=== PATIENT | female | born 1985 | race Caucasian/White ===

== ENCOUNTER 2018-10-03 14:19 | Outpatient (RCR) | payer MEDICAID, OTHER, SELFPAY ==
--- NOTE | 2018-10-03 15:15 | PT.OPPOC ---
Current Diagnoses Cervicalgia (10/03/18) Provider Visit Care Team Role Provider Type Natalia Lerner PA-C Attending Provider Non-Staff Primary Care Provider Specialty: Medical Address: [address] [place] [address] [place], [place], [address] Email: Plan Of Care PT-OP-T Assessment and Plan Start: 10/05/18 16:35 Freq: Status: Active Protocol: Document 10/03/18 15:15 RCC (Rec: 10/05/18 16:59 RCC [email or web address]) Physical Therapy Assessment Rehab Potential Rehabilitation Potential Good Evaluation Complexity Number of Personal Factors/Comorbidities 0 Number of Body Systems Impaired 1-2 Clinical Presentation at Evaluation Stable Impairments Impairments Activity Tolerance Pain Soft Tissue Mobility Other Impairments work tasks- shoveling, lifting Goals cerival ROM Impairment head on neck ROM Residential Goal (LTG) AROM cervical rotation to at least 80 deg. and side-bending to at least 45 deg. without c /o pain prior to d/c to normalize cervical spine ROM. LTG Duration 8 weeks home exercie program Impairment lacks appropriate HEP Residential Goal (LTG) pt will be indep. with her home exercise program to assist with pain management and normalization of soft tissue restrictions prior to d /c. LTG Duration 8 weeks pain rated 7/10 Impairment 7/10 pain B neck Short Term Goal (STG) 5/10 or less at worst after sleep and work related tasks. STG Duration 4 weeks Residential Goal (LTG) 2/10 pain or less at worst after sleep and work related tasks. LTG Duration 8 weeks QuickDASH Impairment 21-> 42% Short Term Goal (STG) QuickDASH score of 15 or less to demonstrate improvements with functional daily tasks. 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 LTG Duration 8 weeks Assessment Summary Assessment Pt presents with negative testing for foraminal compression of the cervical spine, neural tension, or thoracic outlet syndrome. Pt with hypermobility noted at C3 -4 bilaterally, no pain when tested PA force with muscular contraction. Pt's limitations in ROM appear to be related to soft tissue tension in the cervical spine bilaterally. Pt would benefit from skilled outpatient physical therapy to progress her ROM, improved postural and neck stability to decrease hypermobility at the level of C3-4, and to return to sleep and work with minimal to no pain prior to d/c. Physical Therapy Plan Frequency and Duration Frequency of Treatment 2x/Week Duration of Treatment 8 weeks Plan of Care Start Date 10/03/18 Plan of Care End Date 11/28/18 Therapeutic Interventions Therapeutic Interventions Home Exercise Program Joint Mobilizations Manual Therapy Neuromuscular Re-education Patient/Caregiver Education Self-Care/Home Management Soft Tissue Mobilization Taping Therapeutic Activities Therapeutic Exercises Modalities Cold Pack/Ice Massage Electric Stimulation Hot Packs Traction- Mechanical Ultrasound Next Visit Focus/Plan Next Note Type Treatment Note Next Visit Plan manual traction trial, STR cervical mm, review stretches, add 1/2 rib self-mobilization if able. Lanre love, isometrics for c/s. Plan of Care Dates Plan of Care Start Date 10/03/18 Plan of Care End Date 11/28/18 Please Sign and Return: I have reviewed this Plan of Care and certify that the skilled therapy services above are required to meet the patient?s needs. Physician Signature Date Printed Name and Credentials Clinical Instructor Signature Printed Name and Credentials
--- NOTE | 2018-10-03 15:15 | PT.OIE ---
Current Diagnoses Cervicalgia (10/03/18) Past Surgical History Status post colposcopy Provider Visit Care Team Role Provider Type Natalia Lerner PA-C Attending Provider Non-Staff Primary Care Provider Specialty: Medical Address: [address] [place] [address] [place], [address] Email: Physical Therapy Initial Evaluation PT-OP-A Visit Information Start: 10/05/18 16:35 Freq: Status: Active Protocol: Document 10/03/18 15:15 RCC (Rec: 10/05/18 16:59 RCC [email or web address]) Out-Patient Physical Therapy Visit Information Visit Information Visit Type Initial Evaluation Visit Start Time 14:30 Visit Stop Time 15:15 Total Visit Minutes 45 Visit Number 1 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 She tends to sleep on her side, with the bottom UE underneath her head and pillow. She has attempted to change this, has moved her bed and tried different positions, but still tends to get into that position some time during the night. Pain extends from under base of skull into the shoulders. She has tried massage and accupuncture, with some improvement but short-lived. No radiographs done. Denies numbness/tingling. Treatment Goals Patient/Caregiver Goals decrease pain, establish HEP to manage pain Personal Factors Other Personal Factors That May Effect none Therapy/Recovery PT-OP-C Subjective Start: 10/05/18 16:35 Freq: Status: Active Protocol: Document 10/03/18 15:15 RCC (Rec: 10/05/18 16:59 RCC [email or web address]) Patient Questionnaires Quick Dash- Upper Extremity Quick Dash UE Score 21 OP-PT Pain Assessment Location bilateral neck Intensity 7 Scale Used Numeric (1 - 10) Description Aching Spasm Tightness Pain Aggravating Factors Position Home Pain Medication Use Pain Medications Used No PT-OP-F Manual Assessment Start: 10/05/18 16:35 Freq: Status: Active Protocol: Document 10/03/18 15:15 RCC (Rec: 10/05/18 16:59 RCC [email or web address]) Manual Assessments Soft Tissue Assessment Soft Tissue Mobility Assessment Tenderness to palpation: bilateral levator scapulae, upper trapezius, rhomboids, upper trapezius, suboccipitals , scalenes Joint Mobility Assessment Joint Mobility Assessment hypermobility: C3-4 PT-OP-H Neuro Start: 10/05/18 16:35 Freq: Status: Active Protocol: Document 10/03/18 15:15 RCC (Rec: 10/05/18 16:59 RCC [email or web address]) Sensation Evaluation Gross Sensation Gross Sensation WNL Deep Tendon Reflex & Clonus Assessment Deep Tendon Reflex Bilateral Bicep Deep Tendon Reflex 2+ Normal Bilateral Tricep Deep Tendon Reflex 2+ Normal Bilateral Brachioradialis Deep Tendon Reflex 2+ Normal PT-OP-K Range of Motion Start: 10/05/18 16:35 Freq: Status: Active Protocol: Document 10/03/18 15:15 RCC (Rec: 10/05/18 16:59 RCC [email or web address]) Cervical Spine Range of Motion Cervical Spine Active Degrees Testing Position Sitting Flexion 55 Extension 55 Rotation Left 74 Rotation Right 80 Lateral Flexion Left 44 Lateral Flexion Right 40 ROM Limitations Soft Tissue Tightness Comments pain ipisilateral to movement PT-OP-L Special Tests Start: 10/05/18 16:35 Freq: Status: Active Protocol: Document 10/03/18 15:15 RCC (Rec: 10/05/18 16:59 RCC [email or web address]) Special Tests Cervical Spine Special Tests Traction Test Results stretch feels good Spurling's Test Test Results negative bilaterally Foraminal Compression Test Results negative bilaterally C2 Side [place] Test Results negative C1 Side [place] Test Results negative Neural Special Tests- Upper Body Ulnar Nerve Tension Test Results negative bilaterally Radial Nerve Tension Test Results negative bilaterally Median Nerve Tension Test Results negative bilaterally Vascular Special Tests Adson Maneuver Test Results negative bilaterally PT-OP-M Strength Start: 10/05/18 16:35 Freq: Status: Active Protocol: Document 10/03/18 15:15 RCC (Rec: 10/05/18 16:59 RCC [email or web address]) Shoulder Strength Shoulder Manual Muscle Testing Right Flexion 5 Normal Extension 5 Normal Abduction (C5) 5 Normal Adduction 5 Normal External Rotation 5 Normal Internal Rotation 5 Normal Horizontal Abduction 5 Normal Horizontal Adduction 5 Normal Left Flexion 5 Normal Extension 5 Normal Abduction (C5) 5 Normal Adduction 5 Normal External Rotation 5 Normal Internal Rotation 5 Normal Horizontal Abduction 5 Normal Horizontal Adduction 5 Normal Elbow/Forearm Strength Elbow and Forearm Manual Muscle Testing Right Flexion (C6) 5 Normal Extension (C7) 5 Normal Left Flexion (C6) 5 Normal Extension (C7) 5 Normal PT-OP-Q Treatments Start: 10/05/18 16:35 Freq: Status: Active Protocol: Document 10/03/18 15:15 RCC (Rec: 10/05/18 16:59 RCC [email or web address]) Therapeutic Exercises Sitting Exercises levator, upper trap, scalene stretch Side bilateral Reps/Minutes 2 each Comments sitting on hand PT-OP-T Assessment and Plan Start: 10/05/18 16:35 Freq: Status: Active Protocol: Document 10/03/18 15:15 RCC (Rec: 10/05/18 16:59 [facility] [email or web address]) Physical Therapy Assessment Rehab Potential Rehabilitation Potential Good Evaluation Complexity Number of Personal Factors/Comorbidities 0 Number of Body Systems Impaired 1-2 Clinical Presentation at Evaluation Stable Impairments Impairments Activity Tolerance Pain Soft Tissue Mobility Other Impairments work tasks- shoveling, lifting Goals cerival ROM Impairment head on neck ROM Stumper Feller Goal (LTG) AROM cervical rotation to at least 80 deg. and side-bending to at least 45 deg. without c /o pain prior to d/c to normalize cervical spine ROM. LTG Duration 8 weeks home exercie program Impairment lacks appropriate HEP Usp Goal (LTG) pt will be indep. with her home exercise program to assist with pain management and normalization of soft tissue restrictions prior to d /c. LTG Duration 8 weeks pain rated 7/10 Impairment 7/10 pain B neck Short Term Goal (STG) 5/10 or less at worst after sleep and work related tasks. STG Duration 4 weeks Stumper Feller Goal (LTG) 2/10 pain or less at worst after sleep and work related tasks. LTG Duration 8 weeks QuickDASH Impairment 21-> 42% Short Term Goal (STG) QuickDASH score of 15 or less to demonstrate improvements with functional daily tasks. STG Duration 4 weeks Stumper Feller Goal (LTG) QuickDASH score of 12 or less to demonstrate improvements with functional daily tasks. LTG Duration 8 weeks Assessment Summary Assessment Pt presents with negative testing for foraminal compression of the cervical spine, neural tension, or thoracic outlet syndrome. Pt with hypermobility noted at C3 -4 bilaterally, no pain when tested PA force with muscular contraction. Pt's limitations in ROM appear to be related to soft tissue tension in the cervical spine bilaterally. Pt would benefit from skilled outpatient physical therapy to progress her ROM, improved postural and neck stability to decrease hypermobility at the level of C3-4, and to return to sleep and work with minimal to no pain prior to d/c. Physical Therapy Plan Frequency and Duration Frequency of Treatment 2x/Week Duration of Treatment 8 weeks Plan of Care Start Date 10/03/18 Plan of Care End Date 11/28/18 Therapeutic Interventions Therapeutic Interventions Home Exercise Program Joint Mobilizations Manual Therapy Neuromuscular Re-education Patient/Caregiver Education Self-Care/Home Management Soft Tissue Mobilization Taping Therapeutic Activities Therapeutic Exercises Modalities Cold Pack/Ice Massage Electric Stimulation Hot Packs Traction- Mechanical Ultrasound Next Visit Focus/Plan Next Note Type Treatment Note Next Visit Plan manual traction trial, STR cervical mm, review stretches, add 1/2 rib self-mobilization if able. Chin tuck, isometrics for c/s.
--- NOTE | 2018-12-17 09:52 | PT.OPDS ---
Current Diagnoses Cervicalgia (10/03/18) Provider Visit Care Team Role Provider Type Natalia Lerner PA-C Attending Provider Non-Staff Primary Care Provider Specialty: Medical Address: [address] [place] [address], [place], [address] Email: Visit Number Visit Number 1 Discharge Summary PT-OP-B Current Condition Start: 10/05/18 16:35 Freq: Status: Active Protocol: Document 10/03/18 15:15 RCC (Rec: 10/05/18 16:59 RCC [email or web address]) Current Condition History of Current Condition Onset Date years ago Current Complaints B neck pain into shoulders History of Current Condition Pt is a 33 y/o female presenting to physical therapy with a c/o bilateral neck pain. 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 She tends to sleep on her side, with the bottom UE underneath her head and pillow. She has attempted to change this, has moved her bed and tried different positions, but still tends to get into that position some time during the night. Pain extends from under base of skull into the shoulders. She has tried massage and accupuncture, with some improvement but short-lived. No radiographs done. Denies numbness/tingling. Treatment Goals Patient/Caregiver Goals decrease pain, establish HEP to manage pain Personal Factors Other Personal Factors That May Effect none Therapy/Recovery PT-OP-C Subjective Start: 10/05/18 16:35 Freq: Status: Active Protocol: Document 12/17/18 09:49 RCC (Rec: 12/17/18 09:52 RCC [email or web address]) OP-PT Subjective Patient Comments Patient Comments Pt verbalized that she was doing better, performing her stretching. Patient Reported Progress Improving PT-OP-F Manual Assessment Start: 10/05/18 16:35 Freq: Status: Active Protocol: Document 10/03/18 15:15 RCC (Rec: 10/05/18 16:59 RCC [email or web address]) Manual Assessments Soft Tissue Assessment Soft Tissue Mobility Assessment Tenderness to palpation: bilateral levator scapulae, upper trapezius, rhomboids, upper trapezius, suboccipitals , scalenes Joint Mobility Assessment Joint Mobility Assessment hypermobility: C3-4 PT-OP-H Neuro Start: 10/05/18 16:35 Freq: Status: Active Protocol: Document 10/03/18 15:15 RCC (Rec: 10/05/18 16:59 RCC [email or web address]) Sensation Evaluation Gross Sensation Gross Sensation WNL Deep Tendon Reflex & Clonus Assessment Deep Tendon Reflex Bilateral Bicep Deep Tendon Reflex 2+ Normal Bilateral Tricep Deep Tendon Reflex 2+ Normal Bilateral Brachioradialis Deep Tendon Reflex 2+ Normal PT-OP-K Range of Motion Start: 10/05/18 16:35 Freq: Status: Active Protocol: Document 10/03/18 15:15 RCC (Rec: 10/05/18 16:59 RCC [email or web address]) Cervical Spine Range of Motion Cervical Spine Active Degrees Testing Position Sitting Flexion 55 Extension 55 Rotation Left 74 Rotation Right 80 Lateral Flexion Left 44 Lateral Flexion Right 40 ROM Limitations Soft Tissue Tightness Comments pain ipisilateral to movement PT-OP-L Special Tests Start: 10/05/18 16:35 Freq: Status: Active Protocol: Document 10/03/18 15:15 RCC (Rec: 10/05/18 16:59 RCC [email or web address]) Special Tests Cervical Spine Special Tests Traction Test Results stretch feels good Spurling's Test Test Results negative bilaterally Foraminal Compression Test Results negative bilaterally C2 Side [place] Test Results negative C1 Side [place] Test Results negative Neural Special Tests- Upper Body Ulnar Nerve Tension Test Results negative bilaterally Radial Nerve Tension Test Results negative bilaterally Median Nerve Tension Test Results negative bilaterally Vascular Special Tests Adson Maneuver Test Results negative bilaterally PT-OP-M Strength Start: 10/05/18 16:35 Freq: Status: Active Protocol: Document 10/03/18 15:15 RCC (Rec: 10/05/18 16:59 RCC [email or web address]) Shoulder Strength Shoulder Manual Muscle Testing Right Flexion 5 Normal Extension 5 Normal Abduction (C5) 5 Normal Adduction 5 Normal External Rotation 5 Normal Internal Rotation 5 Normal Horizontal Abduction 5 Normal Horizontal Adduction 5 Normal Left Flexion 5 Normal Extension 5 Normal Abduction (C5) 5 Normal Adduction 5 Normal External Rotation 5 Normal Internal Rotation 5 Normal Horizontal Abduction 5 Normal Horizontal Adduction 5 Normal Elbow/Forearm Strength Elbow and Forearm Manual Muscle Testing Right Flexion (C6) 5 Normal Extension (C7) 5 Normal Left Flexion (C6) 5 Normal Extension (C7) 5 Normal PT-OP-T Assessment and Plan Start: 10/05/18 16:35 Freq: Status: Active Protocol: Document 12/17/18 09:49 [facility] (Rec: 12/17/18 09:52 [facility] [email or web address]) Physical Therapy Assessment Assessment Summary Assessment Pt attended one physical therapy session (initial evaluation) and did not show up for her follow up appointment. She did verbalize improvements with pain in October of 2018, but did not schedule further PT appointments at that time. Due to not completing the most recent plan of care, the pt will be d/c from PT at this time. Should issues continue, recommend pt follow up with her PCP. Physical Therapy Plan Discharge Physical Therapy Discharge Reasons No Longer Attending PT Discharge Comments did not complete the most recent plan of care.
== END 2018-12-24 12:45 ==
LOC: PHYS 14:19
PROVIDERS: PCP Physician Assistant; Visit Provider Physician Assistant
DX: M54.2 Cervicalgia (principal)
CPT/HCPCS: 97110; 97161

== ENCOUNTER 2023-08-04 13:03 | Emergency (ER) | payer OTHER, SELFPAY ==
[2023-08-04 13:35] VITALS: BP 140/80; PULSE 65; RESP 16; TEMP 36.8; O2SAT 100; BMI 22.3
[2023-08-04 14:06] LABS: Bacteria Urine Few (2-10); RBC Urine >100/HPF (0-5/HPF); Squamous Epithelial Cell Urine 1-5 /HPF (0-5/HPF); WBC Urine 5-10/HPF (0-5/HPF)
[2023-08-04 14:08] LABS: Amorphous Sediment Urine 1+; Pregnancy Test Urine Negative (Negative)
[2023-08-04 14:13] LABS: Appearance Urine UA TURBID; Bilirubin Urine UA 2+ (NEGATIVE); Color Urine UA RED; Glucose Urine UA NEGATIVE (Negative); Ketones Urine UA 2+ (NEGATIVE); Leukocyte Esterase Urine UA TRACE (NEGATIVE); Nitrite Urine UA POSITIVE (Negative); Occult Blood Urine UA 3+ (Negative); Protein Urine UA 3+ (Negative); Specific Gravity Urine UA >=1.030 (1.000-1.035)
[2023-08-04 14:14] LABS: Culture Indicated Urine Specimen Cultured; pH Urine UA 6.5 (4.5-8.0)
[2023-08-04 14:16] LABS: Ictotest Urine Negative (Negative)
--- NOTE | 2023-08-04 15:18 | ED_ITS ---
HPI - Female Genitourinary General Chief complaint: OB/Uterine Contractions Stated complaint: positive test, spotting Time Seen by Provider: 08/04/23 13:09 Source: patient Mode of arrival: Ambulatory History of Present Illness HPI Narrative: Patient presents from home by private vehicle for spotting. Patient's last menstrual cycle was 06/29. She missed her period on 07/27, and on 07/29 she had a positive home test. Patient reports spotting off and on and cramping yesterday, none today. Related Data Allergies Allergy/AdvReac Type Severity Reaction Status Date / Time No Known Drug Allergies Allergy Verified 08/04/23 13:35 Review of Systems Review of Systems Narrative: CONSTITUTIONAL- Denies: fever, chills, fatigue - Reports: positive home test, spotting Denies: frequency, dysuria, hematuria, flank pain SKIN- Denies: rash, itching, burn, swelling NEUROLOGICAL- Denies: headache, numbness, weakness, dizziness PSYCHIATRIC- Denies: anxiety, depression, suicidal ideation, homicidal ideation Patient History Surgical History (Updated 03/04/18 @ 05:29 by Conversion Provider) Status post colposcopy Last Alcoholic Drink: does not use Substance Use Type: does not use Exam Initial Vital Signs Initial Vital Signs: Vital Signs Temperature 98.3 F 08/04/23 13:35 Pulse Rate 65 08/04/23 13:35 Respiratory Rate 16 08/04/23 13:35 Blood Pressure 140/80 08/04/23 13:35 Pulse Oximetry 100 08/04/23 13:35 Oxygen Delivery Method Room Air 08/04/23 13:35 Const: Awake, alert, no acute distress, nontoxic appearing RESP: unlabored, no wheezing GI: Atraumatic, soft, nontender, nondistended MSK: Atraumatic, full range of motion, pulses equal Skin: Warm, Dry, intact, no rashes Neuro: AO x3, CN II-XII grossly intact, moves all extremities Psych: Anxious affect, mood normal, not suicidal, not homicidal Course Course Course Narrative: Spotting after positive home test. test in emergency department is negative. Patient states that she already knows that she had a miscarriage she is here today for confirmation. She is very tearful stating ?I really wanted this one?. She will follow with OBGYN for fertility concerns. ED return precautions discussed at bedside. Patient expressed understanding of the plan and is in agreement at this time. All questions answered at the time of discharge. Orders Ordered: ED Orders 08/04/23 13:45 Ictotest Urine Stat Test Urine Stat Urinalysis and Microscopic Stat Urine Culture Stat Vital Signs Vital signs: Vital Signs - 8 hr 08/04/23 13:35 08/04/23 15:25 Temperature 98.3 F 98.3 F Pulse Rate 65 79 Respiratory Rate 16 15 Blood Pressure 140/80 132/76 Pulse Oximetry 100 98 Oxygen Delivery Method Room Air Room Air MDM - Female Genitourinary Lab Data Labs: Lab Results 08/04/23 08/04/23 Range/Units 13:45 13:45 Urine Color Red Urine Appearance Turbid Urine pH 6.5 (4.5-8.0) Ur Specific [place] >=1.030 H (1.000-1.035) Urine Protein 3+ H (Negative) Urine Glucose (UA) Negative (Negative) g/dL Urine Ketones 2+ H (NEGATIVE) Urine Occult Blood 3+ H (Negative) Urine Nitrate Positive H (Negative) Urine Bilirubin 2+ H (NEGATIVE) Ur Bilirubin Confirm Negative (Negative) Urine Urobilinogen 1.0 (0.2) E.U./dL Ur Leukocyte Esterase Trace H (NEGATIVE) Urine RBC >100/hpf H (0-5/HPF) Urine WBC 5-10/hpf H (0-5/HPF) Ur Squamous Epith Cells 1-5 /hpf (0-5/HPF) Amorphous Sediment 1+ Urine Bacteria Few (2-10) H (None) Ur Culture Indicated? Specimen cultured Urine Test Negative (Negative) Discharge Plan Departure Patient Disposition: Home Clinical Impression: Negative test Instructions: DI for Miscarriage Referrals: Miscellaneous,Doctor [Primary Care Provider] - Stand Alone Forms: Patient Portal/API
[2023-08-04 15:25] VITALS: BP 132/76; PULSE 79; RESP 15; TEMP 36.8; O2SAT 98
== END 2023-08-04 15:26 | disposition home or self-care (01) ==
PROVIDERS: Emergency Provider Emergency Medicine
DX: N93.9 Abnormal uterine and vaginal bleeding, unspecified (principal); Z32.02 Encounter for pregnancy test, result negative
CPT/HCPCS: 81001; 81025; 87086; 99281; 99282

== ENCOUNTER → 2024-07-20 11:47 | Outpatient (CLI) | payer OTHER, SELFPAY ==
--- NOTE | 2024-07-20 | DI.US.S_ITS ---
PROCEDURE: US OB >= 14 WEEKS FETUS INDICATIONS: ANATOMY SCAN OUTSIDE/PRIOR DATING DATA: Last menstrual period (LMP): 02/24/2024 LMP-based estimated date of delivery (JASON): 11/30/2024. First dating scan (date and location): 07/20/2024. Estimated date of delivery (JASON) from first dating scan: 11/27/2024. TECHNIQUE: Real-time scanning was performed of the fetus, with image documentation and biometric measurements. COMPARISON: None. FINDINGS: General: A single living intrauterine gestation is present. Presentation: Vertex. Placenta: Placental position is anterior , without previa. Amniotic fluid index: 13.2 cm cm, normal range is 5-24 cm. Single deepest vertical pocket is 5.4 cm cm. heart rate: 160 beats per minute. Maternal cervical canal: 3.9 cm cm long. Normal lower limit is 2.5 cm. biometrics: Biparietal diameter: 21 weeks 6 days Head circumference: 21 weeks 4 days Abdominal circumference: 21 weeks 4 days Femur length: 20 weeks 6 days Clinically estimated gestational age: 21 weeks Composite gestational age from present scan: 21 weeks 3 days Estimated weight and percentile: 415 g, 62nd percentile for clinical gestational age Anatomic survey: Neuro: Ventricles are non-dilated at less than 10 mm. Cisterna magna is normal at 3-11 mm. Cerebellum is normal in size and morphology. Nuchal skin fold: Normal at less than 6 mm between 14-21 weeks gestational age. Face: Nose and lips are normal. Facial profile not well seen.. Spine: No evidence for spina bifida. Heart: 4-chambered heart is present, with normal ventricular outflow tracts. Diaphragm: Diaphragm is intact. Stomach: Left-sided stomach is present. Kidneys: No hydronephrosis. Normal is less than 5 mm in 2nd trimester, less than 7 mm in 3rd trimester. Cord: 3-vessel cord has orthotopic insertion. Marginal placental cord insertion site 2.3 cm from the placental edge. Bladder: Normal in size. Extremities: All 4 extremities identified. IMPRESSION: 1. Single living IUP with composite gestational age of 21 weeks 3 days corresponding to ultrasound JASON of 11/27/2024, which is concordant with clinical dates. 2. Facial profile suboptimally visualized; otherwise normal anatomic survey. Short-term follow-up recommended. 3. Marginal placental cord insertion site which can be reassessed on follow-up exam. We strive to produce accurate, complete, and clear reports of imaging services. To assist us in improving patient care, this report was composed using standard report templates and voice recognition software. Therefore, it may contain abnormal punctuation, insertions and/or omissions. Occasional wrong-word or sound-alike substitutions may occur. Though we review the report and make efforts to correct it, we do recommend that the report be read carefully in proper context to recognize any text inaccuracies. Dictated by: Shaji GAY Interpreted: Ritesh Linton MD on 07/20/2024 at 15:58 Transcribed by: CORBIN on 07/20/2024 at 16:01 Approved by: Ritesh Linton M.D. on 07/21/2024 at 8:40
== END ==
PROVIDERS: Referring Provider Nurse Practitioner Obstetrics & Gynecology; Visit Provider Nurse Practitioner Obstetrics & Gynecology
DX: Z34.92 Encounter for supervision of normal pregnancy, unspecified, second trimester (principal); Z3A.21 21 weeks gestation of pregnancy
CPT/HCPCS: 76811

== ENCOUNTER → 2024-07-27 16:25 | Outpatient (CLI) | payer OTHER, SELFPAY ==
--- NOTE | 2024-07-27 16:26 | DI.US.S_ITS ---
PROCEDURE: US OB FOLLOW UP INDICATIONS: follow up to Anatomy Scan OUTSIDE/PRIOR DATING DATA: Last menstrual period (LMP): 11/25/2023. LMP-based estimated date of delivery (JASON): 11/30/2024. First dating scan (date and location): Not applicable. Estimated date of delivery (JASON) from first dating scan: Not applicable. The calculations are made using the working JASON of 11/30/2024. TECHNIQUE: Real-time scanning was performed of the fetus, with image documentation and biometric measurements. Endovaginal scanning: No COMPARISON: None. FINDINGS: General: A single living intrauterine gestation is present. Presentation: Vertex. Placenta: Placental position is anterior , without previa. Amniotic fluid index: 14 cm, normal range is 5-24 cm. Single deepest vertical pocket is 4.2 cm. heart rate: 147 beats per minute. Maternal cervical canal: Not well seen biometrics: Clinically estimated gestational age: 22 week 0 day Anatomic survey: Neuro: Ventricles are normal at less than 10 mm. Cisterna magna is normal at 3-11 mm. Cerebellum is normal in size and morphology. Nuchal skin fold: Normal at less than 6 mm between 14 and 21 weeks gestational age. Face: Nose and lips, facial profile are normal. Spine: No evidence for spina bifida. Heart: 4-chambered heart is present, with normal ventricular outflow tracts. Diaphragm: Diaphragm is intact. Stomach: Left-sided stomach is present. Kidneys: No hydronephrosis. Normal is less than 5 mm in 2nd trimester, less than 7 mm in 3rd trimester. Cord: 3 vessel cord has orthotopic insertion. Cord insertion is 3.4 cm from the placental edge Bladder: Normal in size. Extremities: All 4 extremities are visualized. IMPRESSION: Single live intrauterine consistent with 22 week 0 day gestation. Facial profile is normal. Normal anatomic survey. Approved by: Chino Sharma M.D. on 07/28/2024 at 14:47
== END ==
LOC: US 16:25
PROVIDERS: Referring Provider Nurse Practitioner Obstetrics & Gynecology; Visit Provider Nurse Practitioner Obstetrics & Gynecology
DX: Z34.92 Encounter for supervision of normal pregnancy, unspecified, second trimester (principal); Z3A.22 22 weeks gestation of pregnancy
CPT/HCPCS: 76816

== ENCOUNTER → 2024-11-11 13:44 | Outpatient (CLI) | payer MEDICAID, SELFPAY ==
--- NOTE | 2024-11-11 13:46 | DI.US.S_ITS ---
PROCEDURE: US OB LIMITED INDICATIONS: EFW; JERRY; CORD DOPPLERS OUTSIDE/PRIOR DATING DATA: Last menstrual period (LMP): 02/24/2024. LMP-based estimated date of delivery (JASON): 11/30/2024. First dating scan (date and location): Not applicable. Estimated date of delivery (JASON) from first dating scan: Not applicable. The calculations are made using the working JASON of 11/30/2024. TECHNIQUE: Real-time scanning was performed of the fetus, with image documentation and biometric measurements. Biophysical profile was also obtained. Endovaginal scanning: Not performed COMPARISON: None. FINDINGS: General: A single living intrauterine gestation is present. Presentation: Vertex. Placenta: Placental position is anterior and fundal , without previa. Amniotic fluid index: 6.4 cm, normal range is 5-24 cm. Single deepest vertical pocket is 4.9 cm. heart rate: 158 beats per minute. Maternal cervical canal: Not well seen at late stage of biometrics: Biparietal diameter: 9.1 cm, 36 weeks 5 days Head circumference: 32.8 cm, 37 weeks 2 days Abdominal circumference: 33.0 cm, 36 weeks 6 days Femur length: 7.0 cm, 36 weeks 0 days Clinically estimated gestational age: 37 weeks 2 days Composite gestational age from present scan: 36 weeks 5 days Estimated weight and percentile: 3006 g, 42 percentile Biophysical profile: Umbilical artery Doppler: 1.9, 1.2, 2.0 IMPRESSION: 1. Living late 3rd trimester intrauterine with no sonographic evidence of complications. 2. Borderline low JERRY, near the lower limits of normal. 3. Normal cord Dopplers. We strive to produce accurate, complete, and clear reports of imaging services. To assist us in improving patient care, this report was composed using standard report templates and voice recognition software. Therefore, it may contain abnormal punctuation, insertions and/or omissions. Occasional wrong-word or sound-alike substitutions may occur. Though we review the report and make efforts to correct it, we do recommend that the report be read carefully in proper context to recognize any text inaccuracies. Dictated by: Brock Womack M.D. on 11/11/2024 at 14:54 Approved by: Brock Womack M.D. on 11/11/2024 at 14:58
== END ==
PROVIDERS: Referring Provider Nurse Practitioner Obstetrics & Gynecology; Visit Provider Nurse Practitioner Obstetrics & Gynecology
DX: O26.843 Uterine size-date discrepancy, third trimester (principal); Z3A.37 37 weeks gestation of pregnancy
CPT/HCPCS: 76815; 76820